=== PATIENT | female | born 1990 | race Caucasian/White ===

== ENCOUNTER 2020-04-17 18:09 | Emergency (ER) | payer BC, SELFPAY ==
[~2020-04-17] VITALS: Ht 160 cm; Wt 90.7 kg
[2020-04-17 18:20] VITALS: BP_SYST 115
--- NOTE | 2020-04-17 18:20 | NUR ---
ER at bedside examining patient, per physician report.
--- NOTE | 2020-04-17 19:19 | NUR ---
Patient to ER bed 08 to gown for evaluation. Side rails up.
--- NOTE | 2020-04-17 19:20 | NUR ---
Pt brought in by self. Pt awake, alert, oriented x4. Pt states that she has had flulike symptoms over the past few days with increasing body aches, mild sob and general lethargy. Pt states that she feels like she might have the flu or covid 19. 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 pt denies N/V/D, denies chest pain, any other medical complaint at this time. Pt resting in ED bed comfortably.
[2020-04-17] MEDS ORDERED: NACL 0.9% 1,000 ML IV ONE (19:30)
[2020-04-17] MEDS ORDERED: AZITHROMYCIN 500 MG in NS 250 ML IV ONE (19:30)
[2020-04-17] MEDS ORDERED: KETOROLAC TROMETHAMINE 30 MG VIAL IVP ONE (19:30)
[2020-04-17] MEDS ORDERED: DEXAMETHASONE SOD PHOSPHATE 4 MG/ML VIAL IVP ONE (19:30)
[2020-04-17] MEDS ORDERED: AZITHROMYCIN 500 MG/VIAL (ZITHROMAX) IV ONE (20:05)
--- NOTE | 2020-04-17 20:43 | NUR ---
Pt resting in ED bed. tolerating IV medication and fluids well.
[2020-04-17 21:20] VITALS: BP_SYST 117
--- NOTE | 2020-04-17 21:20 | NUR ---
Patient given written and verbal discharge instructions and verbalizes understanding. ER MD discussed with patient the results and treatment provided. Patient in stable condition. ID arm band removed. IV catheter removed intact and dressing applied, no active bleeding. Rx of Azithromycin, Dexamethasone and Zinc Sulfate given. Patient educated on pain management and to follow up with PMD. Pain Scale 0/10, Pt afebrile, given mask for safety. Opportunity for questions provided and answered. Medication side effect fact sheet provided.
== END 2020-04-17 21:20 | disposition home or self-care (01) ==
LOC: SED 18:09
DX: R50.9 Fever, unspecified (principal); R05 Cough; M79.18 Myalgia, other site; Z20.828 Contact with and (suspected) exposure to other viral communicable diseases
CPT/HCPCS: 36415; 71045; 87040; 96365; 96375; 99284; J0456; J1100; J1885; J7030